=== PATIENT | female | born 1980 | race Caucasian/White ===

== ENCOUNTER 2017-06-16 21:36 | Emergency (ER) | payer OTHER ==
[~2017-06-16] VITALS: Ht 152.4 cm; Wt 42.6 kg
[2017-06-16 21:39] VITALS: TEMP 36.5; Ht 152.4 cm; Wt 42.6 kg
--- NOTE | 2017-06-16 22:18 | DIAGNOSTIC IMAGING REPORT ---
RIGHT SHOULDER 3 VIEWS HISTORY: R shoulder pain Right COMPARISON: None. FINDINGS: Comminuted and displaced fracture at the right humeral neck. This is slightly impacted. This demonstrates medial angulation and up to 1.8 cm of lateral displacement. Soft tissue swelling within the right shoulder. The right clavicle is intact. No radiopaque foreign bodies. No dislocation. IMPRESSION: Comminuted and displaced right humeral neck fracture as described above. Electronically signed by: Leonardo Engel M.D. 06/16/2017 10:16 PM Dictated Date/Time: 06/16/2017 10:15 PM
[2017-06-16] MEDS ORDERED: CLX/20 PO (22:31)
[2017-06-16] MEDS ORDERED: LISI-461 PO (22:31)
[2017-06-16] MEDS ORDERED: OXYC1TAB3 PO (22:59)
[2017-06-16] MEDS ORDERED: OXYCODONE IR HOME PACK PO ONE (23:00)
--- NOTE | 2017-06-16 23:05 | EMERGENCY ROOM VISIT NOTE ---
History First contact with patient: 21:41 Chief Complaint: SHOULDER PAIN Stated Complaint: POSSIBLE DISLOCATED SHOULDER History of Present Illness The patient is a 36 year old female who presents to the Emergency Room with complaints of pain and bruising of the right upper extremity/shoulder region after slipping and falling 5 days ago while getting out of the shower. She reports that she stepped on the floor and fell onto her right side. As she was attempting to get up, she fell again onto the right shoulder. The patient reports limited range of motion, and progressively worsening swelling and bruising from the shoulder initially, then onto the upper arm, and now extending into the forearm. She denies any paresthesias or numbness of the right hand or fingers. She denies any head injury, neck pain, back pain or other injuries from this fall. She rates her discomfort a 5 out of 10 on my exam. Review of Systems 10 system review was performed and was negative except for pertinent positives and negatives as indicated in history of present illness Past Medical/Surgical History Medical Problems: (1) Hypertension (2) Ovarian cyst Surgical Problems: (1) History of ovarian cystectomy Family History FH: hypertension FH: seizures Social History Smoking Status: Never Smoker Alcohol Use: occasionally Marital Status: single Occupation Status: unemployed Current/Historical Medications Scheduled Citalopram (Citalopram Hydrobromide), 20 MG PO DAILY Lisinopril (Zestril), 10 MG PO DAILY Allergies Coded Allergies: No Known Allergies (Unverified , 06/16/17) Physical Exam Vital Signs Date Time Temp Pulse Resp B/P (MAP) Pulse Ox O2 Delivery O2 Flow Rate FiO2 06/16/17 21:39 36.5 90 18 154/107 99 Room Air Physical Exam CONSTITUTIONAL: Healthy and well nourished. Alert and oriented X 3 with positive affect. Patient does not appear in any acute distress. HEENT: Normocephalic, atraumatic. Pupils equal, round and reactive. NECK: Full active range of motion without discomfort. RESPIRATORY: Clear to auscultation bilaterally with no wheezing, crackles, rhonchi or stridor. CARDIOVASCULAR: Regular rate and rhythm with no murmurs, rubs or gallops. GASTROINTESTINAL: Bowel sounds present in all quadrants. Soft and nontender to palpation. MUSCULOSKELETAL: Examination shows notable edema and ecchymosis from the shoulder into the upper arm and proximal aspect of the forearm. Gentle internal and external rotation does not cause any significant discomfort. She is minimally tender over the distal clavicle. The patient has no tenderness to palpation through the biceps or triceps musculature, except for mild discomfort from underlying ecchymosis. She is able to flex and extend the elbow without discomfort. Distal pulses are intact. 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 INTEGUMENTARY: No rash or other significant dermatologic conditions noted. NEUROLOGIC: Right hand and fingers are sensory intact. Right deltoid sensation is intact. Medical Decision & Procedures ER Provider Diagnostic Interpretation: My interpretation of right shoulder x-rays confirms a comminuted, angulated and displaced humeral neck fracture. Radiologist report is as follows: RIGHT SHOULDER 3 VIEWS HISTORY: R shoulder pain Right COMPARISON: None. FINDINGS: Comminuted and displaced fracture at the right humeral neck. This is slightly impacted. This demonstrates medial angulation and up to 1.8 cm of lateral displacement. Soft tissue swelling within the right shoulder. The right clavicle is intact. No radiopaque foreign bodies. No dislocation. IMPRESSION: Comminuted and displaced right humeral neck fracture as described above. ED Course Patient history and physical exam were performed. Nurse's notes were reviewed. Vital signs were reviewed, showing an elevated blood pressure of 154/107. The patient refused any analgesics. X-rays of the right shoulder confirms a comminuted, displaced and angulated humeral neck fracture. I did review x-ray findings with Dr. Swain, orthopedic surgeon on-call, who reviewed x-rays at home, and indicated that the patient could follow-up outpatient. The patient is visiting from [place], but will be moving to the area in the near term. The patient was advised that she should follow-up with orthopedics early next week. She elected to follow up locally with [facility]. A sling immobilizer was applied. An ice pack was also provided. The patient was provided a home pack and prescription for OxyIR 5 mg as needed for pain relief. The patient was happy with plan of care, voiced understanding of all discharge instructions, and rated her pain a 4 out of 10 at the conclusion of my exam. The patient was also advised that her blood pressure was elevated in the emergency department. She was encouraged to follow-up with her PCP for a blood pressure recheck. Medical Decision Impression Primary Impression: Fracture of neck of right humerus Additional Impressions: Fall from slipping on wet surface Elevated blood pressure reading Departure Information Dispostion Home / Self-Care Referrals Lion Swain MD Forms HOME CARE DOCUMENTATION FORM, IMPORTANT VISIT INFORMATION Patient Instructions My [employer] Additional Instructions Wear sling to prevent movement of the shoulder. Intermittently apply ice to the shoulder. Ibuprofen or Tylenol as needed for pain. Follow-up with [facility] (Dr. Swain) for further reevaluation and management. Call their office on Monday and tell them that you were seen in the emergency department on Monday for a shoulder fracture, and that Dr. Swain reviewed the x-rays. Problem Qualifiers Primary Impression: Fracture of neck of right humerus Encounter type: initial encounter Fracture type: closed Qualified Codes: S42.211A - Unspecified displaced fracture of surgical neck of right humerus, initial encounter for closed fracture Additional Impressions: Fall from slipping on wet surface Encounter type: initial encounter Qualified Codes: W01.0XXA - Fall on same level from slipping, tripping and stumbling without subsequent striking against object, initial encounter
[2017-06-16 23:29] VITALS: BP 131/87; PULSE 73; O2SAT 100
[2017-06-21] MEDS ORDERED: OXYC-57 PO (18:53)
== END 2017-06-16 23:31 | disposition home or self-care (01) ==
LOC: C.EDB 21:39 → C.EDC 23:31
DX: S42.211A Unspecified displaced fracture of surgical neck of right humerus, initial encounter for closed fracture (principal); W01.0XXA Fall on same level from slipping, tripping and stumbling without subsequent striking against object, initial encounter; R03.0 Elevated blood-pressure reading, without diagnosis of hypertension; I10 Essential (primary) hypertension; Z98.890 Other specified postprocedural states; Z82.49 Family history of ischemic heart disease and other diseases of the circulatory system; Z82.0 Family history of epilepsy and other diseases of the nervous system; Z79.899 Other long term (current) drug therapy

== ENCOUNTER → 2017-06-20 | Outpatient (CLI) | payer OTHER ==
[~2017-06-20] MED LIST: CLX/20 PO; LISI-461 PO; OXYC-57 PO; OXYC1TAB3 PO
[2017-06-20 16:57] LABS: BASO % 0.4 %; BASO ABS # 0.02 K/uL (0-0.2); COMPLETE YES; EOS % 1.8 %; HEMATOCRIT 32.7 % (37-47); IG% 0.2 %; LYMPH % 29.6 %; LYMPH ABS # 1.49 K/uL (1.2-3.4); MEAN CELL VOLUME 104.5 fL (80-100); MEAN CORPUSCULAR HEMOGLOBIN 32.6 pg (25-34); MEAN CORPUSCULAR HGB CONC 31.2 g/dl (32-36); MONO % 12.1 %; NEUT % 55.9 %; PLATELET COUNT 382 K/uL (130-400); RED BLOOD COUNT 3.13 M/uL (4.2-5.4); WHITE BLOOD COUNT 5.03 K/uL (4.8-10.8)
[2017-06-20 17:18] LABS: BLOOD UREA NITROGEN 9 mg/dl (7-18); BUN/CREATININE RATIO 20.4 (10-20); CALCIUM 8.7 mg/dl (8.5-10.1); CARBON DIOXIDE 30 mmol/L (21-32); CHLORIDE 107 mmol/L (98-107); CREATININE 0.45 mg/dl (0.60-1.20); GLUCOSE 93 mg/dl (70-99); POTASSIUM 3.9 mmol/L (3.5-5.1); SODIUM 141 mmol/L (136-145)
== END | disposition home or self-care (01) ==
LOC: C.LABBC 14:33
PROVIDERS: ATTEND Orthopaedic Surgery
DX: Z01.812 Encounter for preprocedural laboratory examination (principal); S42.291A Other displaced fracture of upper end of right humerus, initial encounter for closed fracture; X58.XXXA Exposure to other specified factors, initial encounter

== ENCOUNTER 2017-06-21 14:17 | Day surgery (SDC) | payer OTHER ==
[2017-06-20 18:07] VITALS: BMI 17.0
[~2017-06-21] VITALS: Ht 152.4 cm; Wt 41.0 kg
[~2017-06-21 14:17] MED LIST changes: +ACETAMINOPHEN 500 MG TAB PO SCH; +CEFAZOLIN 2000 MG/60 ML D5W 60 ML IV SCH; +FAMOTIDINE 20 MG TAB PO SCH; +GABAPENTIN 300 MG CAP PO SCH; +LACTATED RINGER'S 1000ML 1,000 ML IV SCH; +LACTATED RINGER'S 1000ML IV SCH; -OXYC-57 PO
[2017-06-21 14:55] VITALS: BP 102/61; PULSE 73; TEMP 37.1; O2SAT 98; Ht 152.4 cm; Wt 41.0 kg
--- NOTE | 2017-06-21 15:40 | History and Physical ---
History & Physical Date Jun 21, 2017. Chief Complaint Right shoulder pain; fall History of Present Illness The patient is a 36 year old female with complaints of right shoulder pain for the past 10 days. She fell on her right shoulder x2. She feels the second time that she fell she injured her shoulder. She is right hand dominant. She did go to the ER where xrays shown a displaced humerus fracture of her right arm. No prior hx of shoulder or arm injuries/sx. Past Medical/Surgical History Medical Problems: (1) Hypertension (2) Ovarian cyst Surgical Problems: (1) History of ovarian cystectomy Additional History Hepatic Disease: No Endocrine Disorder: No Kidney Disease: No Hypertension: Yes Bleeding Tendencies: No Allergies Coded Allergies: No Known Allergies (Unverified , 06/20/17) Home Medications Scheduled Citalopram (Citalopram Hydrobromide), 20 MG PO DAILY Lisinopril (Zestril), 10 MG PO DAILY Scheduled PRN Oxycodone Ir (Roxicodone Ir), 1-2 TAB PO Q4H PRN for Pain Physical Examination Skin: warm/dry Eyes: normal inspection, EOMI Head: normocephalic Neck: supple, no adenopathy Cardiovascular: regular rate, rhythm (per radial pulse) Extremities: + pertinent finding (eccymosis, decreased ROM, pain with palpation over proximal right humerus) ASA Classification: ASA Class II Plan of Treatment Pre-op surgery right shoulder ORIF right proximal humerus at [facility] 06/21/17. The procedure was described to the patient including risks, benefits, post op expectations, and recovery. She has agreed to the surgical plan. We will see her back in the office 10-14 days post op for suture removal and evaluation.
[2017-06-21] MEDS ORDERED: GLYCOPYRROLATE INJ 0.2 MG/ML VIAL ONE (15:48)
[2017-06-21] MEDS ORDERED: ROCURONIUM BROMIDE 10 MG/ML 5 ML VIAL IV ONE (15:48)
[2017-06-21] MEDS ORDERED: NEOSTIGMINE METHYLSULFATE 5 MG/5 ML SYR ONE (15:48)
[2017-06-21] MEDS ORDERED: LIDOCAINE HCL 2% 2 ML VIAL (20MG/ML) ONE ×2 (15:48→16:22)
[2017-06-21] MEDS ORDERED: ONDANSETRON INJ 2 MG/ML 2 ML VIAL ONE (15:48)
[2017-06-21] MEDS ORDERED: DEXAMETHASONE SOD INJ 4 MG/ML VIAL ONE (15:48)
[2017-06-21] MEDS ORDERED: PROPOFOL IV EMULSION 10 MG/ML 20 ML VIAL IV ONE (15:48)
[2017-06-21] MEDS ORDERED: FENTANYL CITRATE INJ 50 MCG/1 ML 2 ML VIAL ONE (15:49)
[2017-06-21] MEDS ORDERED: MIDAZOLAM HCL 1 MG/ML 2ML VIAL ONE (15:49)
[2017-06-21] MEDS ORDERED: BUPIVACAINE/EPINEPHRINE 0.5% MPF 1:200,000 10 ML VIAL ONE ×2 (15:50→16:42)
[2017-06-21] MEDS ORDERED: BACITRACIN 50000 UNIT VIAL ONE (15:50)
--- NOTE | 2017-06-21 15:53 | History & Physical Bridge Note ---
H&P Re-Evaluation Bridge Note: I have examined the patient, reviewed the History & Physical and in the interval since the performance of the History & Physical I have noted the following changes of clinical significance: No changes noted
[2017-06-21] MEDS ORDERED: ROPIVACAINE 0.5% 5 MG/ML 30 ML VIAL ONE (16:22)
[2017-06-21] MEDS ORDERED: ATROPINE SULFATE 0.1 MG/ML 5ML SYR IV PRN (16:30)
[2017-06-21] MEDS ORDERED: ONDANSETRON INJ 2 MG/ML 2 ML VIAL IV PRN ×2 (16:30→19:00)
[2017-06-21] MEDS ORDERED: LABETALOL HCL IV 5 MG/ML 20ML IV PRN (16:30)
[2017-06-21] MEDS ORDERED: EpHEDrine SULFATE INJ 50 MG/ML AMP IV PRN (16:30)
[2017-06-21] MEDS ORDERED: HYDROmorphone INJ 1 MG/ML SYR IV PRN (16:30)
[2017-06-21] MEDS ORDERED: MEPERIDINE HCL 25 MG/ML CARP IV PRN (16:30)
[2017-06-21] MEDS ORDERED: SODIUM CHLORIDE 0.9% 1000ML 1,000 ML IV SCH (18:51)
[2017-06-21] MEDS ORDERED: OXYC-57 PO ×2 (18:53)
--- NOTE | 2017-06-21 18:53 | DIAGNOSTIC IMAGING REPORT ---
INTRAOPERATIVE FLUOROSCOPIC IMAGES OF THE RIGHT HUMERUS CLINICAL HISTORY: ORIF RT HUMERUS. COMPARISON STUDY: Right shoulder radiograph June 16, 2017 FLUOROSCOPY TIME: 1 minute and 9 seconds. FINDINGS: 2 fluoroscopic images demonstrate placement of a proximal right humeral plate and screws which fixate the right humeral neck fracture. Fracture alignment has markedly improved and is near anatomic. There are no unexpected radiopaque foreign bodies. Hardware is intact. IMPRESSION: Expected findings following right humeral internal fixation. Electronically signed by: Rosalio Yarbrough M.D. 06/21/2017 6:52 PM Dictated Date/Time: 06/21/2017 6:50 PM
--- NOTE | 2017-06-21 18:56 | [facility] Post Operative Brief Note ---
Immediate Operative Summary Operative Date Jun 21, 2017. Pre-Operative Diagnosis Right humeral fracture Post-Operative Diagnosis Right humeral fracture Procedure(s) Performed Right Proximal Humerus Fracture Open Reduction Internal Fixation Surgeon Dr. Tommy Ladd Automatic Packer Operator Surgeon(s) Tommy Parisi PA-C Estimated Blood Loss 250ml Findings as above Specimens none per surgeon Complication(s) None Disposition Recovery Room / PACU
--- NOTE | 2017-06-21 18:57 | Discharge Instructions ---
Discharge Instructions Date of Service Jun 21, 2017. Admission Reason for Admission: Right Proximal Humerus Fracture Discharge Discharge Diagnosis / Problem: SAME ABOVE Discharge Goals Goal(s): Decrease discomfort, Improve function Activity Recommendations Activity Limitations: as noted below Lifting Limitations: until after follow-up appointment Exercise/Sports Limitations: until after follow-up appointment Shower/Bathe: keep incision dry . Instructions / Follow-Up Instructions / Follow-Up MEDICATIONS: * Resume previous medications unless instructed otherwise by your surgeon. * Always take pain medication on a full stomach or with food to avoid upset stomach. * Do not drink alcohol or drive while taking narcotics. * Ibuprofen or Tylenol may be taken if narcotic not needed. SPECIAL CARE INSTRUCTIONS: __ None _X_ Keep extremity elevated and iced x 48 hours; apply ice 20-30 minutes 8-10 times/day. May remove at night. _X_ Sling _X_24 hrs/day __ Remove at night __ Shoulder Immobilizer __ 24 hrs/day __ Remove at night _X_ Dressing __ Maintain until seen in office, may shower with plastic over site __ Remove dressings in 24-48 hours and then may shower __ Cover incisions with band-aids after showering __ Do not remove steri-strips X YOU CAN REMOVE THE DRESSINGS AFTER 5 DAYS, RUN WATER OVER INCISION, PAT DRY, COVER WITH CLEAN DRESSING Call physician if chills or temperature rises above 102 degrees or pain unrelieved by prescribed pain medications at . . Current Hospital Diet Patient's current hospital diet: Discharge Diet Recommended Diet: Regular Diet Procedures Procedures Performed: Right Proximal Humerus Fracture Open Reduction Internal Fixation Pending Studies Studies pending at discharge: no Medical Emergencies . Who to Call and When: Medical Emergencies: If at any time you feel your situation is an emergency, please call 911 immediately. . Non-Emergent Contact Non-Emergency issues call your: Primary Care Provider . "Provider Documentation" section prepared by Tommy Parisi. . VTE Core Measure Inpt VTE Proph given/why not?: Treatment not indicated
[2017-06-21] MEDS: FENTANYL CITRATE INJ 50 MCG/1 ML 2 ML VIAL IV PRN ×2 (18:58→19:05)
[2017-06-21] MEDS ORDERED: OXYCODONE/ACETAMINOPHEN 5-325 TAB PO PRN ×2 (19:00→19:15)
[2017-06-21] MEDS ORDERED: NURSING VERBAL MED ORDER ONE (19:15)
[2017-06-21] MEDS ORDERED: OXYCODONE/ACETAMINOPHEN 5-325 TAB PO SCH (19:15)
[2017-06-21 19:30] VITALS: BP 117/76; PULSE 64; TEMP 36.8; O2SAT 97
--- NOTE | 2017-06-21 19:32 | Anesthesiology Progress Note ---
Anesthesia Post Op Note Date & Time Jun 21, 2017 at 19:32 Vital Signs Pain Intensity: 1 Vital Signs Past 12 Hours Date Time Temp Pulse Resp B/P (MAP) Pulse Ox O2 Delivery O2 Flow Rate FiO2 06/21/17 19:29 36.2 06/21/17 19:20 36.5 88 16 112/76 95 Room Air 06/21/17 19:10 73 16 126/98 96 Room Air 06/21/17 19:00 68 16 110/76 100 Oxymask 10 06/21/17 18:50 36.4 78 16 121/75 100 Oxymask 10 06/21/17 14:55 37.1 73 20 102/61 (75) 98 Room Air Notes Mental Status: alert / awake / arousable, participated in evaluation Pt Amnestic to Procedure: Yes Nausea / Vomiting: adequately controlled Pain: adequately controlled Airway Patency, RR, SpO2: stable & adequate BP & HR: stable & adequate Hydration State: stable & adequate Anesthetic Complications: no major complications apparent
[2017-06-21 20:00] VITALS: BP 109/66; PULSE 70; TEMP 36.8; O2SAT 96
--- NOTE | 2017-06-21 20:13 | OPERATIVE REPORT ---
DATE OF OPERATION: 06/21/2017 PREOPERATIVE DIAGNOSIS: A 2-part right proximal humerus fracture. POSTOPERATIVE DIAGNOSIS: Same. PROCEDURE: Open reduction internal fixation of right proximal humerus with open biceps tenodesis. SURGEON: Dr. Tommy Ladd. OYSTER CULLER: Tommy Parisi PA-C, whose assistance was necessary for retraction and positioning the arm. ANESTHESIA: General with a right interscalene nerve block. COMPLICATIONS: None. CONDITION: Stable to PACU. INDICATIONS: Serina is a pleasant 36-year-old female who fell a couple days ago sustaining a right proximal humerus fracture. She came to my office in an arm sling. There was significant varus displacement. She elected to undergo open reduction internal fixation. She understood the risks, benefits, alternatives to procedure and elected to proceed. OPERATION AND FINDINGS: On 06/21/2017, she arrived at [facility] for the above procedure. She was seen in the preoperative holding area and the operative extremity was identified and signed. She was given a preoperative antibiotic and a right interscalene nerve block. She was taken back to the operating room, laid on the table in supine position and put under general anesthesia. The right shoulder was then prepped and draped in sterile fashion. Time-out was done and the patient and operative extremity was properly identified. A deltopectoral approach was used. Dissection was taken down through the fascia and the anterior shoulder was exposed. The long head of the biceps tendon was identified. The biceps tendon and the biceps groove was used to align the fracture. Fluoroscopy was also used throughout the case to ensure adequate alignment. A Synthes proximal humeral locking plate was placed on the humeral shaft. A single cortical screw was placed in a combination hole. This held the plate to the shaft. The humeral head was then reduced to the plate. K wires were used to align the humeral head to the plate. This was checked under fluoroscopy. Once I was happy with the reduction, a locking screw was placed in the proximal humeral head. K wires were removed and I was happy with the alignment and the position of the plate. Multiple proximal humeral locking screws were then placed. Two humeral shaft screws were then placed. Each screw was measured on fluoroscopy to ensure there was no penetration into the joint. Final x-rays were then taken and I was happy with the alignment of the shoulder. The long head of the biceps tendon was then tenotomized off the insertion of the tuberosity. It was then tenodesed to the upper border of the pectoralis major. The wound was then irrigated with a total of 3 liters of normal saline solution with bacitracin. The skin was then closed with 3-0 V-Loc suture and dimitris. She was then placed in a soft dressing, extubated, transferred to a [facility] and taken to the postanesthesia care unit in stable condition. She tolerated the procedure well. IMPLANTS USED: I used a Synthes proximal humeral locking plate. I attest to the content of the Intraoperative Record and any orders documented therein. Any exception s are noted below.
== END 2017-06-21 20:18 | disposition home or self-care (01) ==
LOC: C.ACU 14:17
PROVIDERS: ATTEND Orthopaedic Surgery
DX: S42.291A Other displaced fracture of upper end of right humerus, initial encounter for closed fracture (principal); W19.XXXA Unspecified fall, initial encounter; I10 Essential (primary) hypertension; Z79.899 Other long term (current) drug therapy

== ENCOUNTER → 2018-01-05 | Outpatient (CLI) | payer OTHER ==
[~2018-01-05] MED LIST changes: -ACETAMINOPHEN 500 MG TAB PO SCH; -CEFAZOLIN 2000 MG/60 ML D5W 60 ML IV SCH; -FAMOTIDINE 20 MG TAB PO SCH; -GABAPENTIN 300 MG CAP PO SCH; -LACTATED RINGER'S 1000ML 1,000 ML IV SCH; -LACTATED RINGER'S 1000ML IV SCH; -OXYC1TAB3 PO
== END | disposition home or self-care (01) ==
LOC: C.PAPS 15:56
PROVIDERS: ATTEND Obstetrics & Gynecology
DX: Z12.4 Encounter for screening for malignant neoplasm of cervix (principal)

== ENCOUNTER → 2018-01-19 | Outpatient (CLI) | payer OTHER ==
[2018-01-19 12:22] LABS: BASO % 0.2 %; BASO ABS # 0.01 K/uL (0-0.2); EOS % 1.7 %; EOS ABS # 0.09 K/uL (0-0.5); HEMATOCRIT 37.1 % (37-47); HEMOGLOBIN 12.5 g/dL (12.0-16.0); IG# 0.01 K/uL (0.00-0.02); LYMPH % 41.9 %; MEAN CELL VOLUME 100.3 fL (80-100); MEAN CORPUSCULAR HEMOGLOBIN 33.8 pg (25-34); MEAN CORPUSCULAR HGB CONC 33.7 g/dl (32-36); MEAN PLATELET VOLUME 9.7 fL (7.4-10.4); MONO % 9.3 %; MONO ABS # 0.49 K/uL (0.11-0.59); NEUT % 46.7 %; NEUT ABS # 2.45 K/uL (1.4-6.5); PLATELET COUNT 343 K/uL (130-400); RED CELL DISTRIBUTION WIDTH CV 13.1 % (11.5-14.5); WHITE BLOOD COUNT 5.25 K/uL (4.8-10.8)
[2018-01-19 16:11] LABS: ALBUMIN 3.6 gm/dl (3.4-5.0); ALT/SGPT 20 U/L (12-78); BLOOD UREA NITROGEN 6 mg/dl (7-18); CARBON DIOXIDE 28 mmol/L (21-32); CHOLESTEROL 185 mg/dl (0-200); CREATININE 0.59 mg/dl (0.60-1.20); GLUCOSE 86 mg/dl (70-99); POTASSIUM 3.9 mmol/L (3.5-5.1); SODIUM 137 mmol/L (136-145)
[2018-01-19 16:21] LABS: ALKALINE PHOSPHATASE 52 U/L (45-117); AST/SGOT 20 U/L (15-37); LDL CHOLESTEROL CALCULATED 113 mg/dl; TOTAL PROTEIN 7.2 gm/dl (6.4-8.2)
== END | disposition home or self-care (01) ==
LOC: C.LAB 10:37
PROVIDERS: ATTEND Neuromusculoskeletal Medicine & OMM
DX: Z13.220 Encounter for screening for lipoid disorders (principal); Z13.1 Encounter for screening for diabetes mellitus; R61 Generalized hyperhidrosis; Z83.3 Family history of diabetes mellitus; Z82.49 Family history of ischemic heart disease and other diseases of the circulatory system; Z83.42 Family history of familial hypercholesterolemia

== ENCOUNTER 2019-10-17 09:42 | Observation (INO) ==
[2019-10-17 10:49] LABS: iSTAT Creatinine 0.4 mg/dl (0.6-1.3); iSTAT Hemoglobin 12.9 g/dl (12.0-16.0); iSTAT Ionized Calcium 1.17 mmol/l (1.12-1.32); iSTAT Potassium 3.2 mEq/L (3.3-5.0)
[2019-10-17 10:50] LABS: Basophils # (auto) 0.01 K/uL (0-0.2); Basophils % (auto) 0.2 %; Eosinophils # (auto) 0.06 K/uL (0-0.5); Eosinophils % (auto) 0.9 %; Hematocrit (blood only) 37.2 % (37-47); Hemoglobin 12.4 g/dL (12.0-16.0); Immature Granulocytes # (auto) 0.02 K/uL (0.00-0.02); Immature Granulocytes % (auto) 0.3 %; Lymphocytes # (auto) 1.55 K/uL (1.2-3.4); Lymphocytes % (auto) 24.4 %; Mean Corpuscular Hemoglobin 31.6 pg (25-34); Mean Corpuscular Hgb Conc 33.3 g/dL (32-36); Mean Corpuscular Volume 94.7 fL (80-100); Mean Platelet Volume 8.8 fL (7.4-10.4); Monocytes # (auto) 0.58 K/uL (0.11-0.59); Monocytes % (auto) 9.1 %; Neutrophils # (auto) 4.14 K/uL (1.4-6.5); Neutrophils % (auto) 65.1 %; Platelet Count 220 K/uL (130-400); RDW Coefficient of Variation 13.5 % (11.5-14.5); RDW Standard Deviation 46.9 fL (36.4-46.3); Red Blood Count 3.93 M/uL (4.2-5.4); White Blood Count 6.36 K/uL (4.8-10.8)
[2019-10-17] MEDS ORDERED: IOVERSOL 100ml IV PRN (11:14)
[2019-10-17 11:17] LABS: Pregnancy Test, Serum Negative (Negative)
[2019-10-17 11:21] LABS: Albumin Level 3.3 gm/dl (3.4-5.0); BUN Creatinine Ratio 13.7 (10-20); Calcium 8.6 mg/dl (8.5-10.1); Creatinine Clr Calc Pharmacy 95.9 ml/min; Est GFR (African American) 135.2; Est GFR (Non-African American) 116.6; Potassium 3.3 mmol/L (3.5-5.1)
[2019-10-17 11:24] LABS: Albumin Globulin Ratio 0.9 (0.9-2); Bilirubin,Total 0.6 mg/dl (0.2-1); Globulin 3.5 gm/dl (2.5-4.0); Total Protein 6.8 gm/dl (6.4-8.2)
--- NOTE | 2019-10-17 11:28 | CT Scan Report ---
CT OF THE CERVICAL SPINE WITHOUT CONTRAST CLINICAL HISTORY: Trauma. COMPARISON STUDY: No previous studies for comparison. TECHNIQUE: Helical axial images of the cervical spine were obtained without IV contrast. Sagittal a nd coronal reconstructions were viewed. Automated exposure control was utilized for the study. A do se lowering technique was utilized adhering to the principles of ALARA. FINDINGS: Alignment of the cervical spine is anatomic. Vertebral body heights are maintained. No acut e cervical spine fracture or subluxation is present. There is no prevertebral edema. Facet joints are intact. IMPRESSION: No acute cervical spine fracture or subluxation. ACT 112: Negative or not required by law. Electronically signed by: Rosalio Yarbrough M.D. 10/17/2019 11:27 AM
--- NOTE | 2019-10-17 11:29 | CT Scan Report ---
HEAD CT NONCONTRAST CT DOSE: HISTORY: trauma eval for injury TECHNIQUE: Multiaxial CT images of the head were performed without the use of intravenous contrast. A utomated exposure control was utilized for this study. A dose lowering technique was utilized adheri ng to the principles of ALARA. Comparison: None. Findings: The paranasal sinuses and mastoid air cells are clear. The calvarium and skull base are int act. The ventricles and sulci are within normal limits. There is no mass, hematoma, midline shift, or acute infarct. Impression: No acute intracranial abnormality. ACT 112: Negative or not required by law. Electronically signed by: Leonardo Engel M.D. 10/17/2019 11:28 AM
--- NOTE | 2019-10-17 11:36 | CT Scan Report ---
THORACIC SPINE CT, LUMBAR SPINE CT CT DOSE: HISTORY: trauma eval for injury TECHNIQUE: Multiaxial CT images of the thoracic and lumbar spine were performed and reformatted in th e sagittal and coronal plane without the use of contrast. A dose lowering technique was utilized adh ering to the principles of ALARA. COMPARISON: None. FINDINGS: Thoracic spine CT: No fracture or subluxation. Paraspinal soft tissues are unremarkable. Disc spaces are preserved. Lumbar spine CT: No fractures within the lumbar spine. Bilateral L5 spondylolysis with associated 5 m m of anterolisthesis. Disc spaces are preserved. Paraspinal soft tissues are within normal limits. Th e visualized sacrum is intact. IMPRESSION: 1. No fractures within the thoracic or lumbar spine. 2. Bilateral L5 spondylolysis with associated grade 1 anterolisthesis. ACT 112: Negative or not required by law. Electronically signed by: Leonardo Engel M.D. 10/17/2019 11:34 AM
--- NOTE | 2019-10-17 11:52 | CT Scan Report ---
CHEST CT WITH INTRAVENOUS CONTRAST, ABDOMEN AND PELVIS CT WITH INTRAVENOUS CONTRAST CT DOSE: HISTORY: trauma eval for injury TECHNIQUE: Multiaxial CT images of the chest, abdomen, pelvis were performed following the intravenou s administration of contrast. A dose lowering technique was utilized adhering to the principles of A CHALINO. COMPARISON: None. FINDINGS: Chest CT: Slight irregularity along the anterior cortex of the mid sternum best seen on axial image 1 14. This could represent a nondisplaced fracture or normal cortical lobulation. There is no significa nt soft tissue swelling at this location. Mild motion artifact within the mid anterior ribs. However, no definite rib fractures identified. Cortical plate and screws transfixing an old, healed humeral n cameron fracture. The heart is normal in size. No pleural or pericardial effusions. Normal esophagus. No mediastinal hematoma or lymphadenopathy. Normal caliber thoracic aorta with no evidence for dissectio n. No pneumothorax. The central airways are patent. A punctate calcified granuloma within the right l ower lobe. Otherwise, lungs are clear. Abdomen/pelvis CT: No pneumoperitoneum. No pneumatosis. No acute fractures within the visualized osse ous structures. Bilateral L5 spondylolysis. The liver, gallbladder, pancreas, spleen, and adrenal gla nds are unremarkable. No retroperitoneal lymphadenopathy. Bilateral renal hypodense lesions. The ifrah rity of these are subcentimeter in size and are therefore too small to characterize. Dominant lesion within the upper pole the right kidney measures 1.5 cm and appears to represent a cyst. No hydronephr osis. There are few punctate stones within the left kidney. Normal bladder. Bilateral ovarian cysts, right greater than left. Dominant cyst within the right ovary measures 2.6 cm. No significant pelvic free fluid. Moderate stool within the colon and rectum. No bowel wall thickening or obstruction. Norm al appendix. Focal heterogeneous area within the lower uterine segment which contains a punctate calc ification. This measures approximately 1.6 cm. This could represent nabothian cysts. IMPRESSION: 1. Slight irregularity along the anterior cortex of the mid sternum which could represent a nondispla bryson fracture or normal cortical lobulation. There is no significant soft tissue swelling at this loca tion. Correlation for point tenderness is recommended to assess for an acute injury. 2. No acute traumatic process within the abdomen or pelvis. 3. Focal heterogeneous area within the lower uterine segment which contains a punctate calcification. This measures approximately 1.6 cm. This could represent nabothian cysts within the cervix. However, follow-up nonemergent pelvic ultrasound is recommended to exclude the possibility of an underlying e ndometrial lesion. ACT 112: Positive. There are findings on this exam that require communication between the performing entity and the patient following Patient Test Result Information Act ([place] Act 112) guidelines. Electronically signed by: Leonardo Engel M.D. 10/17/2019 11:51 AM
[2019-10-17 12:14] LABS: Partial Thromboplastin Ratio 0.9; Partial Thromboplastin Time 25.1 Seconds (21.0-31.0)
[2019-10-17 12:31] LABS: Appearance Urine Clear (Clear); Bilirubin Urine Negative (Negative); Blood Urine Negative (Negative); Color Urine Yellow; Glucose Urine UA Negative (Negative); Ketones Urine Negative (Negative); Leukocyte Esterase Urine Negative (Negative); Nitrite Urine Negative (Negative); Protein Urine Negative (Negative); Specific Gravity Urine 1.034 (1.000-1.030); Urobilinogen Urine Negative (Negative); pH Urine 7.5 (4.5-7.5)
[2019-10-17 13:09] LABS: Amphetamines+Metham, Urine Neg (Neg); Barbiturates, Urine Neg (Neg); Benzodiazepine, Urine Neg (Neg); Cocaine, Urine Neg (Neg); MDMA (Ecstacy), Urine Neg (Neg); Methadone, Urine Neg (Neg); Opiate, Urine Neg (Neg); Phencyclidine, Urine Neg (Neg)
[2019-10-17] MEDS ORDERED: MoRPHine SULFATE 2 MG/ML CARP IV STA (13:25)
[2019-10-17] MEDS ORDERED: ONDANSETRON INJ 2 MG/ML 2 ML VIAL IV STA (13:25)
--- NOTE | 2019-10-17 16:09 | Magnetic Resonance Report ---
Brain MRA HISTORY: Stroke symptoms. TECHNIQUE: 3-D [id number] MRA of the brain was performed without contrast. COMPARISON STUDY: None. FINDINGS: Mild motion artifact. Visualized intracranial internal carotid arteries, distal vertebral a rteries, and basilar artery are widely patent. There is no significant stenosis, occlusion, or aneury sm seen within the bilateral ACAs, MCAs, or executive coach. IMPRESSION: No significant stenosis, occlusion, or aneurysm within the [place]. ACT 112: Negative or not required by law. Electronically signed by: Leonardo Engel M.D. 10/17/2019 4:08 PM
[2019-10-17] MEDS ORDERED: GADOBUTROL 65ML VIAL IV PRN (16:17)
--- NOTE | 2019-10-17 16:31 | Magnetic Resonance Report ---
MRI OF THE BRAIN COMBO CLINICAL HISTORY: Strokelike symptoms. Dizziness. COMPARISON STUDY: CT of the brain dated 10/17/2019. TECHNIQUE: MRI of the brain was performed utilizing various T1 and T2-weighted sequences in the axial , sagittal, and coronal planes. Contrast-enhanced sequences were acquired following the administratio n of 5 cc of Gadavist. FINDINGS: Brain parenchyma: The brain parenchyma is normal in appearance. There is no hemorrhage or mass effect . There is no restricted diffusion to suggest acute ischemia. No enhancing mass lesion is identified on the postcontrast images. Toribio-white matter differentiation is preserved. No extra-axial fluid pepe ection is seen. The cerebellar tonsils are normal in configuration. Ventricles, sulci, and cisterns: Normal in configuration. Pituitary and sella: Unremarkable. Intracranial vasculature: Normal flow voids are maintained at the skull base. Orbits: The bony orbits are grossly intact. Orbital contents are normal in appearance. Sinuses and mastoids: There is trace mucosal thickening within the maxillary and ethmoid sinuses. The remaining nasal sinuses are clear. The mastoid air cells are well pneumatized. Calvarium: Unremarkable. Cervical cord: Partially visualized cervical spinal cord is normal in morphology and signal intensity . IMPRESSION: No acute intracranial abnormality. ACT 112: Negative or not required by law. Electronically signed by: Miguel Angel Giraldo M.D. 10/17/2019 4:30 PM
--- NOTE | 2019-10-17 16:53 | Magnetic Resonance Report ---
MR angio neck wo/w con HISTORY: Mental status change. eval for stroke TECHNIQUE: Multiaxial CT angiography of the neck was performed IV contrast: None. All measurements w ere calculated based on NASCET criteria. Maximum intensity projection images were also obtained. A dose lowering technique was utilized adhering to the principles of ALARA. COMPARISON STUDY: CT examination same date FINDINGS: The aortic arch and proximal great vessels are widely patent. There is no significant sten osis, occlusion, or dissection identified within the bilateral common carotid, internal carotid, or v ertebral arteries. Moderately compromised exam technically due to patient somatic and respiratory mot ion. IMPRESSION: No significant stenosis, occlusion, or dissection identified within the carotid or vertebral arteries . Moderate exam compromised due to respiratory and somatic motion ACT 112: Negative or not required by law. The above report was generated using voice recognition software. It may contain grammatical, syntax or spelling errors. Electronically signed by: Francis Sanabria M.D. 10/17/2019 4:52 PM
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
[2019-10-17] MEDS ORDERED: KETOROLAC TROMETHAMINE 15 MG/ML VIAL IV PRN (17:53)
[2019-10-17] MEDS ORDERED: POTASSIUM CHLORIDE 20 MEQ TABCR PO STA (17:53)
[2019-10-17] MEDS ORDERED: ONDANSETRON INJ 2 MG/ML 2 ML VIAL IV PRN (17:53)
[2019-10-17] MEDS: LACTATED RINGER'S 1,000 ML IV SCH (18:02)
[2019-10-17 18:23] LABS: Magnesium 1.8 mg/dl (1.8-2.4); Phosphorus 2.3 mg/dl (2.5-4.9)
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
[2019-10-17] MEDS: ACETAMINOPHEN 325 MG TAB PO PRN (22:44)
[2019-10-18] MEDS ORDERED: lisinopriL 10 MG TAB PO SCH (00:55)
[2019-10-18] MEDS: LACTATED RINGER'S 1,000 ML IV SCH (04:02)
--- NOTE | 2019-10-18 08:15 | Electrocardiogram Report ---
Test Reason : Blood Pressure : / mmHG Vent. Rate : 104 BPM Atrial Rate : 104 BPM P-R Int : 168 ms QRS Dur : 080 ms QT Int : 340 ms P-R-T Axes : 044 027 060 degrees QTc Int : 447 ms Sinus tachycardia Low voltage QRS Borderline ECG No previous ECGs available Confirmed by Lion Crystal ([id number]) on 10/17/2019 5:46:00 PM Referred By: REFERRED SELF Confirmed By:Prasad Crystal
[2019-10-18] MEDS: ACETAMINOPHEN 325 MG TAB PO PRN (09:01)
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
== END 2019-10-18 18:12 | disposition home or self-care (01) ==
LOC: 2W 09:42 → ED 09:42 → SUATTDRO 14:38 → 2W 17:24